=== PATIENT | male | born 1995 | race Native Hawaiian/Other Pacific Islander ===

== ENCOUNTER 2017-08-30 09:16 | Emergency (ER) | payer OTHER ==
[~2017-08-30] VITALS: Ht 180.3 cm; Wt 97.5 kg
[2017-08-30 10:22] LABS: PLATELET COUNT 297 K/uL (142-355)
[2017-08-30 10:31] LABS: POTASSIUM 4.3 mmol/L (3.6-5.2)
[2017-08-30 11:15] VITALS: BP 135/86; TEMP 98.8
== END 2017-08-30 11:15 | disposition home or self-care (01) ==
LOC: ED 09:16
PROVIDERS: Family Medicine
DX: T78.40XA Allergy, unspecified, initial encounter (principal)
CPT/HCPCS: 36415; 80048; 85027; 96372; 99283; J1200

== ENCOUNTER 2018-03-19 10:08 | Emergency (ER) | payer OTHER ==
[~2018-03-19] VITALS: Ht 180.3 cm; Wt 109.8 kg
[2018-03-19 10:08] VITALS: TEMP 97.9
[2018-03-19 13:50] VITALS: BP 128/71
== END 2018-03-19 13:50 | disposition home or self-care (01) ==
LOC: ED 10:54
PROC: 2W3QX1Z Immobilization of Right Lower Leg using Splint (ICD-10-PCS; principal; 2018-03-19)
DX: S93.401A Sprain of unspecified ligament of right ankle, initial encounter (principal); W18.30XA Fall on same level, unspecified, initial encounter; Y93.67 Activity, basketball
CPT/HCPCS: 96372; 99283; J1885; L4350

== ENCOUNTER 2018-07-04 18:31 | Emergency (ER) | payer OTHER ==
[~2018-07-04] VITALS: Ht 180.3 cm; Wt 109.8 kg
[2018-07-04 20:18] LABS: PLATELET COUNT 441 K/uL (142-355)
[2018-07-04 21:30] VITALS: BP 136/84; TEMP 100
== END 2018-07-04 21:31 | disposition home or self-care (01) ==
LOC: ED 18:31
PROVIDERS: Family Medicine
DX: J18.9 Pneumonia, unspecified organism (principal); D72.829 Elevated white blood cell count, unspecified
CPT/HCPCS: 36415; 80053; 85027; 87502; 87651; 96372; 99283; J0696

== ENCOUNTER 2019-02-08 10:02 | Emergency (ER) | payer OTHER ==
[~2019-02-08] VITALS: Ht 180.3 cm; Wt 113.4 kg
[2019-02-08 10:18] VITALS: TEMP 98.6
[2019-02-08 11:15] VITALS: BP 138/84
== END 2019-02-08 11:15 | disposition home or self-care (01) ==
LOC: ED 10:02
DX: J06.9 Acute upper respiratory infection, unspecified (principal)
CPT/HCPCS: 87502; 87651; 99283